=== PATIENT | female | born 1955 | race African-American/Black ===

== ENCOUNTER 2023-08-19 09:14 | Emergency (ER) | payer MEDICARE, SELFPAY ==
[2023-08-19 09:21] VITALS: BP 169/105; PULSE 91; RESP 18; TEMP 36.6; O2SAT 97; BMI 36.6
--- NOTE | 2023-08-19 10:11 | ED.ABDPAIN1 ---
HPI - Abdominal Pain General Chief Complaint: Abdominal Pain Stated Complaint: ABDOMINAL PAIN >5 DAYS Time Seen by Provider: 08/19/23 10:04 Source: patient Mode of arrival: walk-in History of Present Illness HPI narrative: Patient here for evaluation of abdominal pain. She says she has had this pain off and on for 5 days. She has not had fever shakes chills or feeling of being warm or febrile. She has mild nausea but has not had any vomiting. No diarrhea at all. She is a hypertensive patient and she did not take her meds yet this morning. She also is a diabetic. Past surgical history includes cholecystectomy. She has not had pancreatitis or hepatitis or bowel obstruction. No known history of diverticular disease. Her pain is in the upper epigastric area below the diaphragm. She says she did have a little bit of coughing but no classic pneumonia or her influenza type symptoms. She has no shortness of breath. She had a urinary infection about a month ago and did not finish her antibiotics but no longer has her urinary symptoms. Related Data Home Medications Medication Instructions Recorded Confirmed atorvastatin 40 mg tablet 40 mg PO DAILY 08/19/23 08/19/23 celecoxib 100 mg capsule (Celebrex) 100 mg PO DAILY 08/19/23 08/19/23 losartan 100 mg tablet (Cozaar) 100 mg PO DAILY 08/19/23 08/19/23 metformin 500 mg tablet 500 mg PO BID 08/19/23 08/19/23 omeprazole 40 mg capsule,delayed 40 mg PO DAILY 08/19/23 08/19/23 release Allergies Allergy/AdvReac Type Severity Reaction Status Date / Time No Known Drug Allergies Allergy Verified 08/19/23 09:26 Exam Narrative Exam Narrative: Awake alert does not appear ill she is moving about comfortably does not appear to have peritoneal irritation. Her skin color is good there is no evidence of scleral icterus jaundice or pallor. Problem focused examination of the abdomen does show the laparoscopic incisions. She does however have normal bowel sounds. She does not have tenderness to palpation in the right or the left upper quadrant there is no guarding rebound or rigidity. She has no discomfort in the suprapubic area. She does not have any cough congestion or respiratory distress. Her extremities do not show any evidence of DVT phlebitis or edema. Constitutional Vital Signs, click to edit/add: Last Vital Signs Temp 98 F 08/19/23 09:21 Pulse 91 H 08/19/23 09:21 Resp 18 08/19/23 09:21 BP 169/105 H 08/19/23 09:21 Pulse Ox 97 08/19/23 09:21 O2 Del Method Room Air 08/19/23 09:21 Course Vital Signs Vital signs: Vital Signs Temperature 98 F 08/19/23 09:21 Pulse Rate 91 H 08/19/23 09:21 Respiratory Rate 18 08/19/23 09:21 Blood Pressure 169/105 H 08/19/23 09:21 Pulse Oximetry 97 08/19/23 09:21 Oxygen Delivery Method Room Air 08/19/23 09:21 Temperature 98 F 08/19/23 09:21 Pulse Rate 91 H 08/19/23 09:21 Respiratory Rate 18 08/19/23 09:21 Blood Pressure 169/105 H 08/19/23 09:21 Pulse Oximetry 97 08/19/23 09:21 Oxygen Delivery Method Room Air 08/19/23 09:21 MDM - Abdominal Pain MDM Narrative Medical decision making narrative: Patient's laboratory testing does not disclose an acute emergency. Her abdominal series x-ray does not show any evidence of bowel obstruction or abnormal gas pattern. Because the persistence of this discomfort for 5 days I felt it would be prudent to go ahead and rule out any other subtle acute abnormality so a CT was done with IV contrast. That study did not disclose any emergency condition or acute findings either. This information was shared with the patient. I will place her on antispasmodic for couple days only clear fluids were advised Discharge Plan Discharge Stand Alone Forms: Portal Instructions Chief Complaint: Abdominal Pain Clinical Impression: Abdominal pain Patient Disposition: Home, Self-Care Time of Disposition Decision: 12:55 Prescriptions / Home Meds: No Action metformin 500 mg tablet 500 mg PO BID celecoxib [Celebrex] 100 mg capsule 100 mg PO DAILY losartan [Cozaar] 100 mg tablet 100 mg PO DAILY omeprazole 40 mg capsule,delayed release(DR/EC) 40 mg PO DAILY atorvastatin 40 mg tablet 40 mg PO DAILY Additional Instructions: Clear fluids for 24 hours then slowly advance diet. May try Levsin for 2 or 3 days only Referrals: Physician,Non-Staff, MD [Primary Care Provider] - 1 week
--- NOTE | 2023-08-19 10:13 | XR_ITS ---
The [address] [address] Patient Name: MINA VILLARREAL MRN: [id number] date: 1955 Sex: F Assigned Patient Location: ER Current Patient Location: ER Accession/Order Number: [id number] Exam Date: 08/19/2023 10:40 Report Date: 08/19/2023 11:21 At the request of: MAYDA LORENZ Procedure: XR acute abdomen series EXAMINATION: XR acute abdomen series HISTORY: Abdominal pain COMPARISON: No relevant comparison available. FINDINGS: LUNGS: No infiltrate, pneumothorax, or pleural effusion. MEDIASTINUM: No abnormal widening. BOWEL GAS PATTERN: Non-obstructed. No abnormal dilation, suspicious fluid levels, or significant stool burden. FREE AIR: None. CALCIFICATIONS: None significant. BONES: No fracture or visible bone lesion. OTHER: Negative. XR/XR acute abdomen series IMPRESSION: 1. No abnormal or suspicious findings to account for patient's symptoms. Electronically authenticated by: MORELIA BO Date: 08/19/2023 11:21
[2023-08-19 10:25] LABS: Bilirubin Urine NEGATIVE (NEGATIVE); Blood Urine NEGATIVE (NEGATIVE); Clarity Urine CLEAR (CLEAR); Color Urine YELLOW (YELLOW); Glucose Urine UA NEGATIVE (NEGATIVE); Ketones Urine TRACE mg/dL (NEGATIVE); Leukocyte Esterase Urine NEGATIVE (NEGATIVE); Nitrite Urine NEGATIVE (NEGATIVE); Protein Urine NEGATIVE (NEG/TRACE); Specific Gravity Urine 1.025 (1.005-1.025); Urobilinogen Urine 0.2 EU/dL (0.2-1.0)
[2023-08-19 10:30] LABS: Urine Microscopic Indicated NO
[2023-08-19 10:34] LABS: Basophils Percent Auto 0.2 % (0.2-2.0); Eosinophils Absolute Auto 0.1 10^3/uL (0.0-0.7); Eosinophils Percent Auto 0.8 % (0.9-7.0); Hematocrit 42.1 % (36.0-48.0); Hemoglobin 13.3 g/dL (12.0-16.0); Immature Granulocytes Abs Auto 0.04 10^3/uL (0.00-0.03); Immature Granulocytes Pct Auto 0.4 % (0.0-0.5); Lymphocytes Absolute Auto 2.5 10^3/uL (1.2-3.8); Lymphocytes Percent Auto 24.4 % (20.5-60.0); Mean Corpuscular HGB Conc 31.6 g/dL (29.9-35.2); Mean Corpuscular Hemoglobin 29.3 pg (26.7-34.0); Mean Corpuscular Volume 92.7 fL (81.0-99.0); Mean Platelet Volume 9.7 fL (9.5-13.5); Monocytes Absolute Auto 0.5 10^3/uL (0.3-0.8); Monocytes Percent Auto 4.9 % (1.7-12.0); Neutrophils Absolute Auto 7.1 10^3/uL (1.4-6.5); Neutrophils Percent Auto 69.3 % (43.0-75.0); Platelet Count 363 10^3/uL (150-450); Red Blood Count 4.54 10^6/uL (4.20-5.40); Red Cell Distribution Width 13.7 % (11.0-15.0); White Blood Count 10.3 10^3/uL (4.0-11.0)
[2023-08-19 10:51] LABS: Alanine Aminotransferase 18 U/L (14-59); Albumin Globulin Ratio 0.7; Alkaline Phosphatase 135 U/L (46-116); Anion Gap 9.9; Aspartate Amino Transferase 13 U/L (15-37); BUN Creatinine Ratio 11.1; Bilirubin Total 0.8 mg/dL (0.2-1.0); Carbon Dioxide 32.7 mmol/L (21.0-32.0); Chloride 102 mmol/L (98-107); Estimated GFR (African America >60 (>=60); Estimated GFR (Non-African Ame 51 (>=60); Globulin 4.6 g/dL; Glucose 136 mg/dL (74-106); Potassium 3.6 mmol/L (3.5-5.1); Sodium 141 mmol/L (136-145); Total Protein 7.6 g/dL (6.4-8.2)
--- NOTE | 2023-08-19 11:17 | CT_ITS ---
The [address] [address] Patient Name: MINA VILLARREAL MRN: [id number] date: 1955 Sex: F Assigned Patient Location: ER Current Patient Location: ER Accession/Order Number: [id number] Exam Date: 08/19/2023 11:32 Report Date: 08/19/2023 12:36 At the request of: MAYDA LORENZ Procedure: CT abdomen pelvis w con EXAM: CT abdomen pelvis w con HISTORY: Pain COMPARISON: None. TECHNIQUE: Following intravenous administration of 99 cc of Omnipaque 300, axial soft tissue windows of the abdomen and pelvis were performed with coronal and sagittal reformats. CT dose reduction technique was used including Automated Exposure Control. Findings: ABDOMEN: There is fatty infiltration of the liver. There are couple scattered hepatic low-attenuation lesions, too small to characterize. Trace amount of perihepatic fluid. The gallbladder is surgically absent. The spleen, pancreas, and adrenal glands are unremarkable. No renal stones or collecting system dilatation. Innumerable bilateral low-attenuation, too small to characterize. 0.3 cm left upper pole cortical calcification. The bilateral ureters are nondilated. Evaluation of the bowel is limited given the absence of oral contrast. There are scattered colonic diverticula. There is wall thickening throughout the colon likely relating to lack of distention. The appendix is nondilated. The aorta is normal caliber. No enlarged abdominal lymph nodes or or free abdominal fluid. Pelvis: Unremarkable bladder. The uterus is present and unremarkable within the limits of this CT. No enlarged pelvic lymph nodes or free pelvic fluid. No aggressive sclerotic or lytic osseous lesions. Mild degenerative spondylosis. CT/CT abdomen pelvis w con IMPRESSION: 1. No acute abdominal or pelvic abnormality. 2. Fatty liver 3. Diverticulosis. 4. Other nonemergent findings, as described above. Electronically authenticated by: MATTIE MCDONALD Date: 08/19/2023 12:36
== END 2023-08-19 13:13 | disposition home or self-care (01) ==
PROVIDERS: Emergency Provider Emergency Medicine Emergency Medical Services
DX: R10.9 Unspecified abdominal pain (principal); E11.9 Type 2 diabetes mellitus without complications; Z90.49 Acquired absence of other specified parts of digestive tract; Z87.440 Personal history of urinary (tract) infections; Z79.899 Other long term (current) drug therapy; Z79.84 Long term (current) use of oral hypoglycemic drugs
CPT/HCPCS: 36415; 74022; 74177; 80053; 81003; 83690; 85025; 99285; Q9967